=== PATIENT | female | born 1950 | race Caucasian/White ===

== ENCOUNTER → 2016-10-08 | Outpatient (CLI) | payer OTHER, MEDICARE | END | disposition home or self-care (01) | LOC: RD 09:54 | DX: Z11.1 Encounter for screening for respiratory tuberculosis (principal); Z20.1 Contact with and (suspected) exposure to tuberculosis ==

== ENCOUNTER → 2017-04-02 | Outpatient (CLI) | payer OTHER, MEDICARE | END | disposition home or self-care (01) | LOC: RD 11:03 | DX: Z01.818 Encounter for other preprocedural examination (principal) ==

== ENCOUNTER → 2018-07-21 | Outpatient (CLI) | payer OTHER, MEDICARE | END | disposition home or self-care (01) | LOC: RD 15:20 | DX: Z87.891 Personal history of nicotine dependence (principal) ==